=== PATIENT | female | born 1950 | race Caucasian/White ===

== ENCOUNTER 2020-01-09 09:40 | Outpatient (CLI) | payer MEDICARE, SELFPAY ==
--- NOTE | ~2020-01-09 | CT_ITS ---
EXAMINATION: CTA chest abdomen pelvis EXAM DATE: 01/09/2020 10:25 INDICATION: Thoracic aortic aneurysm without rupture. Repair, follow-up. TECHNIQUE: Spiral CT angiogram of the chest, abdomen and pelvis was performed without followed by wit h intravenous injection of 100 mL Omnipaque 350. Axial, coronal and sagittal images were reviewed. M aximum intensity projection 3-D reconstructions of the arteries were created by the technologist on dedicated workstation. Coronal maximum intensity pixel images of chest reviewed. The dose-length pr oduct (DLP) for this examination was 3272.70 mGy-cm. The exposure was tailored according to patient size (auto mA exposure control), and iterative reconstruction (ASIR) was used as additional dose redu ction technique. Comparison is made to prior examination from 11/30/2017. FINDINGS: Chronic thrombus proximal left subclavian arterial stent. There is a stent starting at the aortic arch and extending to the midthoracic level crossing a treated saccular aneurysm just beyond t he aortic arch, no evidence of endoleak. Abdominal aorta is normal in caliber with moderate scattered arteriosclerotic disease. 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 There are 2 left renal arteries. CHEST: The lungs are clear. There are no pleural or pericardial effusions. Tracheobronchial tree is patent. There is no mediastinal, hilar or axillary lymphadenopathy. There is no pneumothorax. Heart normal in size. There is mild coronary arterial calcification, arterial sclerosis. ABDOMEN PELVIS: There is a right adrenal gland 4.7 cm fat attenuation predominant lesion consistent w ith myelolipoma, unchanged. There is an accessory liver lobe extending above the diaphragm posterior to the IVC. There are gallstones within an otherwise unremarkable gallbladder. No evidence of obstr uctive biliary disease. Laparotomy jayy. Spleen, left adrenal gland, pancreas are unremarkable. P ortal and splenic veins are patent. Kidneys enhance symmetrically. There is no hydronephrosis. No n ephrolithiasis. The uterus is unremarkable. The bladder is unremarkable. There is no retroperiton eal or pelvic lymphadenopathy. The appendix is normal. There is a 3 cm duodenal diverticulum. There is expected amount of colonic stool. No free intraperitoneal gas. There are no osteoblastic or osteolytic lesions identified. IMPRESSION: 1. Stable thoracic saccular aneurysm, no evidence of endoleak. 2. Chronic occlusion left subclavian stent. 3. Right adrenal gland myelolipoma. 4. Cholelithiasis. 5. Duodenal diverticulum. Reviewed, dictated and finalized at location B. 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
[2020-01-09 10:15] LABS: Estimated Glomerular Filt Rate > 60
== END 2020-01-09 09:41 | disposition home or self-care (01) ==
LOC: ANHIMG 09:50
PROVIDERS: PCP Family Medicine Adolescent Medicine
DX: I71.2 Thoracic aortic aneurysm, without rupture (principal); Z95.828 Presence of other vascular implants and grafts; D17.79 Benign lipomatous neoplasm of other sites; K80.20 Calculus of gallbladder without cholecystitis without obstruction; K57.10 Diverticulosis of small intestine without perforation or abscess without bleeding
CPT/HCPCS: 71275; 74174; Q9967

== ENCOUNTER → 2020-10-09 14:25 | Outpatient (CLI) | payer MEDICARE, SELFPAY ==
--- NOTE | ~2020-10-09 | XR_ITS ---
XR hip RT min 2V DATE: 10/09/2020 14:56 INDICATION: Right hip pain TECHNIQUE: AP and lateral views of right hip COMPARISON: 01/29/2014 pelvis FINDINGS: No fracture or dislocation, avascular necrosis or bone destruction. There is mild right hip osteoarthritis. The pubic symphysis and right sacroiliac joints are intact. IMPRESSION: Right hip osteoarthritis Reviewed, dictated and finalized at location A. IMPRESSION: Right hip osteoarthritis
== END ==
PROVIDERS: PCP Family Medicine Adolescent Medicine; Visit Provider Physician Assistant
DX: M16.11 Unilateral primary osteoarthritis, right hip (principal)
CPT/HCPCS: 73502

== ENCOUNTER → 2021-05-15 09:41 | Outpatient (CLI) | payer MEDICARE, SELFPAY ==
--- NOTE | ~2021-05-15 | CT_ITS ---
EXAMINATION:CT diagnostic chest wo con DATE: 05/15/2021 10:04 INDICATION: Thoracic aortic aneurysm without rupture. TECHNIQUE: Computed tomography (CT) of the chest was performed without intravenous contrast. Automate d exposure control and iterative reconstruction technique were employed. The dose-length product (DLP ) was 583.92 mGy-cm. COMPARISON: Chest CT 01/09/2020, 02/04/15 FINDINGS: The lungs demonstrate mosaic attenuation inferiorly, likely small airways disease. There is mild peripheral atelectasis and scarring in left lower lobe and lingula. No pleural effusion. There changes of embolization of left subclavian artery. There is a stent graft from the aortic arch to the mid descending aorta. There is a fusiform aneurysm of proximal descending thoracic aorta measuring 3 .9 cm without change. There is a 4.7 cm mass in right adrenal gland containing fat, consistent with a myelolipoma. There is a gallstone in the gallbladder. There is mild thoracic spondylosis. IMPRESSION: 1. Stable 3.9 cm fusiform aneurysm of proximal descending thoracic aorta with stent graft. Reviewed, dictated and finalized at location A. IMPRESSION: 1. Stable 3.9 cm fusiform aneurysm of proximal descending thoracic aorta with s tent graft.
== END ==
PROVIDERS: PCP Family Medicine Adolescent Medicine; Visit Provider Family Medicine Adolescent Medicine
DX: I71.2 Thoracic aortic aneurysm, without rupture (principal); M54.9 Dorsalgia, unspecified
CPT/HCPCS: 71250

== ENCOUNTER → 2022-02-26 08:17 | Outpatient (CLI) | payer MEDICARE, SELFPAY ==
--- NOTE | ~2022-02-26 | CT_ITS ---
EXAMINATION: CT diagnostic chest wo con DATE: 02/26/2022 08:59 INDICATION: Thoracic aortic aneurysm without rupture TECHNIQUE: Computed tomography (CT) of the chest was performed without intravenous contrast. The dose -length product (DLP) was 650.61 mGy-cm. Automated exposure control and iterative reconstruction tech [employer] were employed. COMPARISON: 05/15/2021 FINDINGS: There is a stable 3.9 cm fusiform aneurysm of the proximal descending thoracic aorta withou t significant change. A stent graft is again seen extending from the aortic arch to the mid descendin g aorta. There has been no interval change. There is mild dependent atelectasis. Again noted is mild mosaic attenuation in the lower lobes which may reflect small airways disease. No pathologically enla rged thoracic lymph nodes are identified. The heart size is normal. Calcified coronary artery atheros clerosis is noted. There is a 4.9 cm mass of the right adrenal gland containing macroscopic fat, cons istent with a myelolipoma. Stones are present in the gallbladder. There is mild thoracic spondylosis. Multiple old healed left rib fractures are noted. IMPRESSION: 1. Stable fusiform aneurysm of the aortic arch status post stent graft placement. Reviewed, dictated and finalized at location B. 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 Stable fusiform aneurysm of the aortic arch status post stent graft andria saez
== END ==
PROVIDERS: PCP Family Medicine Adolescent Medicine; Visit Provider Family Medicine Adolescent Medicine
DX: I71.20 Thoracic aortic aneurysm, without rupture, unspecified (principal); R07.9 Chest pain, unspecified; Z95.828 Presence of other vascular implants and grafts
CPT/HCPCS: 71250

== ENCOUNTER → 2022-05-04 13:57 | Outpatient (CLI) | payer MEDICARE, SELFPAY ==
--- NOTE | ~2022-05-04 | MM_ITS ---
EXAMINATION: MM screening inocencia BI w sofia HISTORY: Screening TECHNIQUE: Craniocaudal and mediolateral oblique 3-D tomosynthesis images were obtained and synthetic 2-D images were generated. CAD analysis was submitted and interpreted. COMPARISON: 10/01/2014 BREAST PARENCHYMAL COMPOSITION: There are scattered areas of fibroglandular density. FINDINGS: There is no evidence of suspicious mass, calcification, or architectural distortion to sugg est malignancy in either breast. There has been no suspicious interval change. IMPRESSION: 1. No mammographic evidence of malignancy. 2. Recommend routine screening mammography in one year. BI-RADS Category 1: Negative Reviewed, dictated and finalized at location A.
== END ==
PROVIDERS: PCP Family Medicine Adolescent Medicine; Visit Provider Family Medicine Adolescent Medicine
DX: Z12.31 Encounter for screening mammogram for malignant neoplasm of breast (principal)
CPT/HCPCS: 77063; 77067

== ENCOUNTER → 2022-09-16 13:43 | Outpatient (CLI) | payer MEDICARE, SELFPAY ==
--- NOTE | ~2022-09-16 | XR_ITS ---
EXAMINATION: XR chest 2V DATE: 09/16/2022 14:05 INDICATION: Right anterior chest pain and dyspnea TECHNIQUE: frontal and lateral views of the chest were obtained. COMPARISON: Chest CT dated 02/26/2022 FINDINGS: Chronic mild elevation of the right hemidiaphragm. No focal airspace opacities, pulmonary edema, pleu ral effusion or pneumothorax. Heart size is normal. Endoluminal stent grafting beginning at the aorti c arch and extending to the mid descending thoracic aorta. Mild thoracic spondylosis. IMPRESSION: 1. Chronic mild elevation left hemidiaphragm. No acute cardiopulmonary disease. Reviewed, dictated and finalized at location A.
--- NOTE | ~2022-09-16 | XR_ITS ---
EXAMINATION: XR ankle RT min 3V DATE: 09/16/2022 14:05 INDICATION: Right ankle pain and weakness TECHNIQUE: Anteroposterior, oblique, mortise, and lateral views of the right ankle were obtained. COMPARISON: None. FINDINGS: Alignment is normal. No fracture. Mild polyarticular osteoarthritis at the right ankle, subtalar, ta lonavicular and a few tarsal metatarsal joints. Moderate-sized Achilles and plantar calcaneal spurs. No ankle joint effusion. The soft tissues are unremarkable. IMPRESSION: 1. Mild polyarticular osteoarthritis at the right ankle, mid and hindfoot. No acute osseous abnormali ty. Reviewed, dictated and finalized at location A. IMPRESSION: 1. Mild polyarticular osteoarthritis at the right ankle, mid and hindfoot. No a cute osseous abnormality.
== END ==
PROVIDERS: PCP Family Medicine Adolescent Medicine; Visit Provider Family Medicine Adolescent Medicine
DX: R07.9 Chest pain, unspecified (principal); M25.571 Pain in right ankle and joints of right foot; R06.00 Dyspnea, unspecified; M15.9 Polyosteoarthritis, unspecified; R91.8 Other nonspecific abnormal finding of lung field
CPT/HCPCS: 71046; 73610

== ENCOUNTER 2023-07-14 11:02 | Outpatient (CLI) | payer MEDICARE, SELFPAY ==
--- NOTE | ~2023-07-14 | XR_ITS ---
Clinical Indication: Chronic cough PA and lateral views of the chest: Comparison: 09/16/2022 Findings: The lungs are clear, without evidence of focal consolidation or pleural effusion. Cardiome diastinal silhouette is unchanged, with descending thoracic aortic stent graft in place. Bones and so ft tissues are unremarkable. Impression: Clear lungs. Stable aortic stent graft. Reviewed, dictated and finalized at location . Impression: Clear lungs. Stable aortic stent graft.
== END 2023-07-14 11:03 ==
PROVIDERS: PCP Nurse Practitioner Family; Visit Provider Nurse Practitioner Family
DX: R05.3 Chronic cough (principal); Z95.818 Presence of other cardiac implants and grafts
CPT/HCPCS: 71046

== ENCOUNTER 2023-09-26 09:30 | Outpatient (CLI) | payer MEDICARE, SELFPAY ==
--- NOTE | ~2023-09-26 | US_ITS ---
US pelvic complete w TV Ordering provider: Radha Griffin APRN History: . N95.0 - Postmenopausal bleeding . Comparison: None. Technique: Transabdominal and endovaginal ultrasound of the pelvis (Doppler ultrasound interrogation techniques used as needed for this exam.) FINDINGS: CERVIX: Normal. UTERUS: Measures 7.2x 2.9x 3.8 cm in length which is within normal limits and is anteverted. No myom etrial masses. ENDOMETRIUM: Normal in thickness measuring 13 mm. Complex area seen in the fundus of the uterus measu ring 1.6x 0.7 cm. CUL DE SAC: No free fluid. RIGHT OVARY: Not visualized. LEFT OVARY: Not visualized. ADNEXA: Normal. No mass. IMPRESSION: Slightly thickened endometrium with complex area in the fundus of the uterus. Further evaluation to e xclude endometrial pathology is advised. Reviewed, dictated and finalized at location A. IMPRESSION: Slightly thickened endometrium with complex area in the fundus of the uterus. F urther evaluation to exclude endometrial pathology is advised.
== END 2023-09-26 09:31 ==
LOC: MICIMG 10-07 09:58
PROVIDERS: PCP Nurse Practitioner Family; Visit Provider Nurse Practitioner Family
DX: N95.0 Postmenopausal bleeding (principal)
CPT/HCPCS: 76830; 76856

== ENCOUNTER 2023-10-04 07:34 | Outpatient (CLI) | payer MEDICARE, SELFPAY ==
--- NOTE | ~2023-10-04 | CT_ITS ---
EXAMINATION: CTA chest DATE: 10/04/2023 08:08 INDICATION: Thoracic aortic aneurysm without rupture. TECHNIQUE: Computed tomographic angiography (CTA) of the chest was performed with 100 mL Omnipaque-35 0 intravenous contrast. Automated exposure control and iterative reconstruction technique were employ ed. The dose-length product was 714.65 mGy-cm. Maximum intensity projection 3D-reconstructions of the aorta and other arteries were constructed by the technologist on a separate workstation. COMPARISON: Chest CT 02/26/2022 FINDINGS: There is mild scarring at the lung apices. There is smooth septal thickening in the lungs, which may be mild pulmonary edema and/or mild chronic interstitial lung disease. There is mosaic atte nuation in the lungs, likely small airways disease. Again seen is mild rounded atelectasis in left lo wer lobe. No pleural effusion. Cardiomegaly is noted. There are coronary artery calcifications. No pe ricardial effusion. There is total occlusion of proximal left subclavian artery with an intraluminal occlusion device. There is ectasia of proximal descending aorta measuring 3.8 cm. There is a stent gr aft involving distal aortic arch and descending thoracic aorta in expected position. No endoleak. The re is mild aortic atherosclerosis. There are gallstones in the gallbladder, which is normal in size. There is a 4.8 cm mass in right adrenal gland containing fat, consistent with a myelolipoma. There is mild thoracic spondylosis. There are old healed left rib fractures. IMPRESSION: 1. Stable ectasia of descending thoracic aorta measuring 3.8 cm with stent graft in expected position . No endoleak. Reviewed, dictated and finalized at location A. IMPRESSION: 1. Stable ectasia of descending thoracic aorta measuring 3.8 cm with stent yan t in expected position. No endoleak.
[2023-10-04 08:03] LABS: Estimated Glomerular Filt Rate > 60
== END 2023-10-04 07:35 | disposition home or self-care (01) ==
PROVIDERS: PCP Nurse Practitioner Family; Visit Provider Nurse Practitioner Family
DX: I71.20 Thoracic aortic aneurysm, without rupture, unspecified (principal); Z95.828 Presence of other vascular implants and grafts
CPT/HCPCS: 71275; Q9967

== ENCOUNTER 2024-03-02 12:31 | Outpatient (CLI) | payer MEDICARE, SELFPAY ==
--- NOTE | ~2024-03-02 | MM_ITS ---
EXAMINATION: MM screening inocencia BI w sofia HISTORY: Screening TECHNIQUE: Craniocaudal and mediolateral oblique 3-D tomosynthesis images were obtained and synthetic 2-D images were generated. CAD analysis was submitted and interpreted. COMPARISON: Comparison to multiple prior studies sequentially, with oldest reviewed study dated 10/01. BREAST PARENCHYMAL COMPOSITION: Not Dense: The breasts are almost entirely fatty. FINDINGS: There is no evidence of suspicious mass, calcification, or architectural distortion to sugg est malignancy in either breast. There has been no suspicious interval change. IMPRESSION: 1. No mammographic evidence of malignancy. 2. Recommend routine screening mammography in one year. BI-RADS Category 1: Negative Reviewed, dictated and finalized at location A. 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
== END 2024-03-02 12:32 | disposition home or self-care (01) ==
LOC: MICIMG 12:32
PROVIDERS: PCP Nurse Practitioner Family; Visit Provider Nurse Practitioner Family
DX: Z12.31 Encounter for screening mammogram for malignant neoplasm of breast (principal)
CPT/HCPCS: 77063; 77067

== ENCOUNTER 2024-03-02 13:16 | Outpatient (CLI) | payer MEDICARE, SELFPAY ==
[2024-03-02 13:42] LABS: Hematocrit 40.2 % (37.0-47.0); Hemoglobin 13.6 g/dL (12.0-15.0); Immature Platelet Fraction Pct 2.4 % (0.9-11.2); Mean Corpuscular HGB Conc 33.8 g/dl (32-36); Mean Corpuscular Hemoglobin 29.2 pg (26-34); Mean Corpuscular Volume 86.3 fl (80-100); Mean Platelet Volume 9.6 fl (7.4-10.4); Platelet Count Result 150 k/mm3 (150-375); Red Blood Count 4.66 M/mm3 (4.2-5.4); Red Cell Distribution Width 12.6 % (11.5-14.5); White Blood Count 4.6 K/mm3 (4.5-10.0)
[2024-03-02 13:53] LABS: Alanine Aminotransferase 19 U/L (6-35); Albumin Level 4.5 g/dL (3.5-5.1); Alkaline Phosphatase 80 U/L (38-126); Anion Gap 8 mmol/L (4-12); Aspartate Amino Transferase 22 U/L (14-36); Bilirubin,Total 0.9 mg/dL (0.2-1.3); Blood Urea Nitrogen 11 mg/dL (7-17); Calcium 9.5 mg/dL (8.4-10.2); Carbon Dioxide 28 mmol/L (22-30); Chloride 102 mmol/L (98-107); Cholesterol 162 mg/dL (0-200); Estimated Glomerular Filt Rate > 60; Glucose 97 mg/dL (65-110); HDL Direct 72 mg/dL; Sodium 138 mmol/L (137-145); Triglycerides 117 mg/dL (<150)
[2024-03-02 14:04] LABS: LDL Cholesterol Direct 63 mg/dL
== END 2024-03-02 13:17 | disposition home or self-care (01) ==
LOC: ANHLAB 13:18
PROVIDERS: PCP Nurse Practitioner Family; Visit Provider Nurse Practitioner Family
DX: M54.9 Dorsalgia, unspecified (principal); N95.0 Postmenopausal bleeding; E78.2 Mixed hyperlipidemia; Z95.5 Presence of coronary angioplasty implant and graft; R07.9 Chest pain, unspecified; G47.00 Insomnia, unspecified; R53.83 Other fatigue
CPT/HCPCS: 36415; 80053; 80061; 82607; 84443; 85027; 85055

== ENCOUNTER → 2024-08-28 16:05 | Outpatient (CLI) | payer MEDICARE, SELFPAY ==
--- NOTE | ~2024-08-28 | XR_ITS ---
Right Shoulder Technique: AP and scapular Y views were obtained. Clinical History: Pain Findings: No fracture or dislocation is seen. Osseous alignment is anatomic. The glenohumeral joint i s intact. There is moderate AC joint degenerative change. Soft tissues are unremarkable. Impression: Moderate AC joint degenerative change. Reviewed, dictated and finalized at [facility]. Impression: Moderate AC joint degenerative change.
--- NOTE | ~2024-08-28 | XR_ITS ---
Right ankle Technique: AP, oblique, and lateral views were obtained. Clinical History: Pain Findings: No acute fracture or dislocation is seen. Osseous alignment is anatomic. Ankle mortise and other visualized joint spaces are preserved. Soft tissues are otherwise unremarkable. Impression: No acute abnormality. Reviewed, dictated and finalized at location . Impression: No acute abnormality.
== END ==
PROVIDERS: PCP Nurse Practitioner Family; Visit Provider Family Medicine
DX: M19.011 Primary osteoarthritis, right shoulder (principal); M25.571 Pain in right ankle and joints of right foot; M79.671 Pain in right foot
CPT/HCPCS: 73030; 73610; 73630